=== PATIENT | female | born 1985 | race Caucasian/White ===

== ENCOUNTER 2022-08-02 06:14 | Inpatient (IN) | payer OTHER ==
[~2022-08-02] VITALS: Ht 175.3 cm; Wt 151.5 kg
--- NOTE | 2022-08-03 13:12 | PR ---
[facility] [address], [place] [address] Signed PP Progress Notes Datetime Report Generated by RICHA: 08/03/2022 13:12 SUBJECTIVE: [id number] Pain: Within Normal Limits Flatus: Yes Bowel Movement: Yes Vital Signs: [id number] Vital Signs: Reviewed Notable Details: no sustained severe BP EXAM: Ongoing Cardiovascular: Normal Respiratory: Normal Abdomen/Uterus: Normal Lochia: Normal Extremities: Normal Progress: Normal Exam Comments: NAD, resting in bed No dyspnea/ retractions RRR Abd sNTND, FFBU Ext: trace edema BLLE, neg Salvador's BL IMPRESSION/PLAN/PROCEDURES: [id number] Impression: Normal Progression Plan: Discharge Procedures: None Progress Notes: 36 yo PPD#1 s/p Spontaneous onset of labor - progressing well . Ambulating, voiding, tolerating regular diet, lochia light, requesting DC to home. Pain well-controlled with acetaminophen. Hgb 11.3 from 12.2 on admission chronic kidney disease: avoiding NSAIDs. BP elevated, non-severe. PreE precautions reviewed, BP check in office 08/05/22. Signing Physician: Juan Beth DO *Electronically Signed* 08/03/22 1312 JUAN BETH DO PATIENT NAME: NIKOS FLOYD PROGRESS NOTE DATE OF : 85 PHYSICIAN: JUAN BETH DO RPT #: [id number] REPORT IS CONFIDENTIAL AND NOT TO BE RELEASED WITHOUT AUTHORIZATION
== END 2022-08-03 15:34 | disposition home or self-care (01) | DRG 807 ==
LOC: FBCO 06:14 → FBC 07:18
PROVIDERS: ADMIT Obstetrics & Gynecology; ATTEND Obstetrics & Gynecology
PROC: 10E0XZZ Delivery of Products of Conception, External Approach (ICD-10-PCS; principal; 2022-08-02)
PROC: 0HQ9XZZ Repair Perineum Skin, External Approach (ICD-10-PCS; 2022-08-02)
PROC: 00HU33Z Insertion of Infusion Device into Spinal Canal, Percutaneous Approach (ICD-10-PCS; 2022-08-02)
PROC: 3E0R3BZ Introduction of Anesthetic Agent into Spinal Canal, Percutaneous Approach (ICD-10-PCS; 2022-08-02)
PROC: 10907ZC Drainage of Amniotic Fluid, Therapeutic from Products of Conception, Via Natural or Artificial Opening (ICD-10-PCS; 2022-08-02)
PROC: 0UQMXZZ Repair Vulva, External Approach (ICD-10-PCS; 2022-08-02)
DX: O99.214 Obesity complicating childbirth (principal); Z37.0 Single live birth; O99.892 Other specified diseases and conditions complicating childbirth; N18.9 Chronic kidney disease, unspecified; O99.324 Drug use complicating childbirth; F12.90 Cannabis use, unspecified, uncomplicated; Z20.822 Contact with and (suspected) exposure to COVID-19; Z67.10 Type A blood, Rh positive; F11.90 Opioid use, unspecified, uncomplicated; Z3A.37 37 weeks gestation of pregnancy; O99.344 Other mental disorders complicating childbirth; F41.9 Anxiety disorder, unspecified; O70.0 First degree perineal laceration during delivery
CPT/HCPCS: 36415; 80053; 83615; 84550; 85027; 86850; 86900; 86901; 87502; A9270; C9803; J2590; J7121; U0003